=== PATIENT | male | born 1975 | race African-American/Black ===

== ENCOUNTER 2017-08-02 18:19 | Emergency (ER) | payer SELFPAY ==
[~2017-08-02] VITALS: Ht 172.7 cm; Wt 68.2 kg
[2017-08-02] MEDS ORDERED: KETOROLAC TROMETHAMINE 60 MG/2 ML VIAL IM ONE (21:15)
[2017-08-02 22:22] VITALS: BP 120/76
== END 2017-08-02 23:38 | disposition home or self-care (01) ==
LOC: EMS 18:20
DX: S92.811A Other fracture of right foot, initial encounter for closed fracture (principal); F17.210 Nicotine dependence, cigarettes, uncomplicated; Z88.6 Allergy status to analgesic agent; X58.XXXA Exposure to other specified factors, initial encounter; Y93.89 Activity, other specified; Y92.89 Other specified places as the place of occurrence of the external cause; Y99.8 Other external cause status
CPT/HCPCS: 29515; 73630; 96372; 99284; 99406; J1885

== ENCOUNTER → 2017-09-03 | Outpatient (CLI) | payer MEDICAID | END | disposition home or self-care (01) | LOC: RADPV 11:52 | PROVIDERS: ATTEND Surgery | DX: S92.331D Displaced fracture of third metatarsal bone, right foot, subsequent encounter for fracture with routine healing (principal); X58.XXXD Exposure to other specified factors, subsequent encounter ==

== ENCOUNTER 2020-08-18 15:20 | Emergency (ER) | payer SELFPAY ==
[~2020-08-18] VITALS: Ht 172.7 cm; Wt 63.6 kg
[2020-08-18] MEDS ORDERED: GENTAMICIN SULFATE 0.3% OPHTHALMIC SOLUTION 5 ML OS ONE (17:00)
[2020-08-18] MEDS ORDERED: IBUPROFEN 600 MG TABLET PO ONE (17:00)
[2020-08-18 17:15] VITALS: BP 127/64
== END 2020-08-18 17:22 | disposition home or self-care (01) ==
LOC: EMS 15:20
DX: B30.9 Viral conjunctivitis, unspecified (principal); J02.9 Acute pharyngitis, unspecified; F17.210 Nicotine dependence, cigarettes, uncomplicated; Z88.6 Allergy status to analgesic agent
CPT/HCPCS: 99283